=== PATIENT | female | born 1985 | race Caucasian/White ===

== ENCOUNTER → 2016-05-23 | Outpatient (CLI) | payer OTHER ==
--- NOTE | 2016-05-23 13:32 | REP ---
LUMBAR SPINE, FIVE VIEWS: HISTORY: Back pain . There is no acute fracture or subluxation. The intervertebral discs are normal in height. The facet joints are normal in appearance. IMPRESSION: There is no acute fracture or subluxation. Signed by Reyes Jacob MD 05/23/2016 01:35 P
== END ==
LOC: M WUC 11:21
PROVIDERS: ATTEND Physician Assistant
DX: M54.5 Low back pain (principal)